=== PATIENT | male | born 1985 | race Hispanic/Latino ===

== ENCOUNTER 2019-03-27 22:32 | Emergency (ER) | payer SELFPAY ==
[2019-03-27] MEDS ORDERED: SODIUM CHLORIDE 0.9% 1000ML 2,000 ML IV ONE (23:16)
[2019-03-27 23:24] LABS: INR 0.95 (0.85-1.15); PARTIAL THROMBOPLASTIN TIME 24.3 SEC (26.3-35.5)
[2019-03-27 23:29] LABS: APPEARANCE,URINE Clear (CLEAR); BILIRUBIN,URINE Negative (NEGATIVE); COLOR,URINE Yellow (YELLOW); GLUCOSE, URINE (UA) >=1000 mg/dL (NEGATIVE); KETONES,URINE Negative (NEGATIVE); LEUKOCYTE ESTERASE ,URINE Negative (NEGATIVE); NITRATE,URINE Negative (NEGATIVE); OCCULT BLOOD,URINE Negative (NEGATIVE); PROTEIN,URINE Negative (NEGATIVE)
[2019-03-27 23:31] LABS: BASOPHILS % (AUTO) 0.3 % (0.0-5.0); HEMATOCRIT 43.6 % (42-54); MEAN CORPUSCULAR HEMOGLOBIN 29.9 pg (27.0-33.0); MEAN CORPUSCULAR HGB CONC 34.2 g/dL (32.0-36.0); MEAN CORPUSCULAR VOLUME 87.3 fL (79-99); MONOCYTES % (AUTO) 6.3 % (3.0-13.0); NEUTROPHILS % (AUTO) 73.4 % (40.0-77.0); NUCLEATED RED BLOOD CELLS 0.1 % (0.0-0.19); PLATELET COUNT (AUTO) 299 K/uL (130-400); RED CELL DISTRIBUTION WIDTH 13.5 % (11.0-15.5); WHITE BLOOD COUNT (AUTO) 15.3 K/uL (4.8-10.8)
[2019-03-27 23:32] LABS: ABG OXYGEN SATURATION 58.7 % (95.0-99.0); BASE EXCESS,VENOUS BLOOD GAS 0.6 (-2.0-3.0); HCO3,VENOUS BLOOD GAS 26.8 (21.0-28.0); PCO2,VENOUS BLOOD GAS 49 (35-48); PH,VENOUS BLOOD GAS 7.358 (7.350-7.450)
[2019-03-27 23:41] LABS: CREATININE 1.1 mg/dL (0.5-1.5); POTASSIUM 3.8 mmol/L (3.5-5.1)
[2019-03-27 23:45] LABS: ALBUMIN 3.5 g/dL (3.5-5.0); BILIRUBIN,TOTAL 0.3 mg/dL (0.2-1.0); TOTAL PROTEIN, SERUM 8.1 g/dL (6.0-8.3)
[2019-03-28 00:03] LABS: BACTERIA,URINE None Seen /HPF (None Seen); RBC,URINE None Seen /HPF (0-1); SQUAMOUS EPITHELIAL CELL,UR Rare /HPF (0-2); WBC,URINE None Seen /HPF (0-1); YEAST,URINE BUDDING None Seen /HPF (None Seen)
[2019-03-28] MEDS ORDERED: KETOROLAC TROMETHAMINE 30MG/ML ONE (00:14)
[2019-03-28] MEDS ORDERED: ORPHENADRINE CITRATE 30 MG/ML ML ONE (00:14)
[2019-03-28] MEDS ORDERED: LIDOCAINE 5% TOPICAL PATCH TP ONE (00:14)
== END 2019-03-28 01:05 | disposition home or self-care (01) ==
LOC: EDH 22:32
DX: E86.9 Volume depletion, unspecified (principal); R73.9 Hyperglycemia, unspecified; M54.5 Low back pain; M62.838 Other muscle spasm
CPT/HCPCS: 36415; 36600; 74176; 80053; 81001; 82010; 82550; 82803; 83605; 83690; 84484; 85025; 85610; 85730; 93005; 96361; 96374; 96375; 99285; J1885; J2360; J7030